=== PATIENT | male | born 1970 | race Hispanic/Latino ===

== ENCOUNTER 2017-01-06 13:50 | Emergency (ER) | payer MEDICARE ==
[2017-01-06 15:30] LABS: Hematocrit 35.4 % (35.5-45.6); Mean Corpuscular HGB Conc 34 % (32-34); Mean Corpuscular Hemoglobin 30 pg (28-32); Mean Corpuscular Volume 89 fl (84-94); Platelet Count 295 K/mm3 (140-440); Red Cell Distribution Width 13.4 % (13.2-15.2); White Blood Count 10.5 K/mm3 (4.5-11.0)
[2017-01-06 15:43] LABS: Alanine Aminotransferase 19 units/L (7-56); Albumin 4.5 g/dL (3.9-5); Albumin/Globulin Ratio 1.7 %; Alkaline Phosphatase 59 units/L (35-129); Anion Gap 21 mmol/L; Blood Urea Nitrogen 11 mg/dL (9-20); Calcium 9.7 mg/dL (8.4-10.2); Carbon Dioxide 26 mmol/L (22-30); Chloride 98.9 mmol/L (98-107); Glucose 154 mg/dL (75-100); Potassium 4.3 mmol/L (3.6-5.0); Sodium 142 mmol/L (137-145); Total Protein 7.2 g/dL (6.3-8.2)
[2017-01-06] MEDS ORDERED: NACL 0.9% 1000 ML 1,000 ML IV ONE (17:50)
[2017-01-06] MEDS ORDERED: LEVAQUIN PO ONE (17:50)
--- NOTE | 2017-01-06 19:06 | Emergency Department Report ---
ED N/V/D HPI - General Chief complaint: Nausea/Vomiting/Diarrhea Stated complaint: DIARRHEA Time Seen by Provider: 01/06/17 17:49 Source: EMS Mode of arrival: Stretcher Limitations: No Limitations - History of Present Illness Initial comments: 46-year-old male presenting to the emergency department complaining of one week of diarrhea. Patient states he lives in a [facility] and most of the members have had diarrhea. Patient states his symptoms started 1 day prior to ED arrival. Patient states diarrhea is watery, nonbloody, nonbilious. Patient denies other symptoms. Patient denies: Fever/chills, chest pain, abdominal pain , nausea vomiting, bloody stools. MD complaint: diarrhea -: Gradual, days(s) (7) Description of Vomiting: food contents, watery Description of Diarrhea: water Associated Abdominal Pain: No Radiation: none Severity: mild Pain Scale: 0 Improves with: none Worsens with: none Context: sick contacts Associated Symptoms: denies other symptoms. denies: chest pain, cough, diaphoresis, loss of appetite, malaise, nausea/vomiting, shortness of breath, syncope, weakness - Related Data Previous Rx's Medication Instructions Recorded Last Taken Type Ciprofloxacin HCl [Ciprofloxacin 500 mg PO Q12HR #20 tab 01/06/17 Unknown Rx TAB] Dicyclomine [Bentyl] 10 mg PO QID #20 bottle 01/06/17 Unknown Rx Ondansetron [Zofran Odt] 4 mg PO Q8HR PRN #20 tab.rapdis 01/06/17 Unknown Rx Allergies Allergy/AdvReac Type Severity Reaction Status Date / Time No Known Allergies Allergy Unverified 01/06/17 14:32 ED Review of Systems ROS: Stated complaint: DIARRHEA Other details as noted in HPI Constitutional: denies: chills, fever Eyes: denies: eye pain, eye discharge, vision change ENT: denies: ear pain, throat pain Respiratory: denies: cough, shortness of breath, wheezing Cardiovascular: denies: chest pain, palpitations Endocrine: no symptoms reported Gastrointestinal: denies: abdominal pain, nausea, diarrhea Genitourinary: denies: urgency, dysuria Musculoskeletal: denies: back pain, joint swelling, arthralgia Skin: denies: rash, lesions Neurological: denies: headache, weakness, paresthesias Psychiatric: denies: anxiety, depression Hematological/Lymphatic: denies: easy bleeding, easy bruising ED Past Medical Hx - Past Medical History Hx Hypertension: Yes Hx Diabetes: Yes Additional medical history: dementia, elevated cholesterol - Social History Smoking Status: Never Smoker Substance Use Type: None - Medications Home Medications: Home Medications Medication Instructions Recorded Confirmed Last Taken Type Ciprofloxacin HCl [Ciprofloxacin 500 mg PO Q12HR #20 tab 01/06/17 Unknown Rx TAB] Dicyclomine [Bentyl] 10 mg PO QID #20 bottle 01/06/17 Unknown Rx Ondansetron [Zofran Odt] 4 mg PO Q8HR PRN #20 tab.rapdis 01/06/17 Unknown Rx ED Physical Exam - General Limitations: No Limitations General appearance: alert, in no apparent distress - Head Head exam: Present: atraumatic, normocephalic - Eye Eye exam: Present: normal appearance - ENT ENT exam: Present: mucous membranes moist - Neck Neck exam: Present: normal inspection - Respiratory Respiratory exam: Present: normal lung sounds bilaterally. Absent: respiratory distress - Cardiovascular Cardiovascular Exam: Present: regular rate, normal rhythm. Absent: systolic murmur, diastolic murmur, rubs, gallop - GI/Abdominal GI/Abdominal exam: Present: soft, normal bowel sounds. Absent: distended, tenderness, guarding, rebound - Rectal Rectal exam: Present: deferred - Extremities Exam Extremities exam: Present: normal inspection - Back Exam Back exam: Present: normal inspection - Neurological Exam Neurological exam: Present: alert, oriented X3 - Psychiatric Psychiatric exam: Present: normal affect, normal mood - Skin Skin exam: Present: warm, dry, intact, normal color. Absent: rash ED Course Vital Signs 01/06/17 01/06/17 14:23 14:36 Temperature 98.4 F Pulse Rate 113 H Respiratory 18 18 Rate Blood Pressure 118/82 O2 Sat by Pulse 97 Oximetry - Reevaluation(s) Reevaluation #1: 01/06/17 19:11 Patient resting comfortably ED Medical Decision Making - Lab Data Result diagrams: 01/06/17 15:04 01/06/17 15:04 - Medical Decision Making 46 yo male presenting to the emergency department complaining of one week of diarrhea. Patient has no acute findings on physical exam nor labs. Patient states he just use the restroom is unable to provide us a urine sample at this time. I have low suspicion for UTI however if he does have a UTI, I will start him on Cipro which should cover. Patient is well-appearing tolerating by mouth and agrees he is stable discharge home. Critical care attestation.: If time is entered above; I have spent that time in minutes in the direct care of this critically ill patient, excluding procedure time. ED Disposition Clinical Impression: Diarrhea Disposition: DC-01 TO HOME OR SELFCARE Is pt being admited?: No Does the pt Need Aspirin: No Condition: Stable Instructions: Gastroenteritis (ED), Acute Diarrhea (ED) Prescriptions: Ciprofloxacin HCl [Ciprofloxacin TAB] 500 mg PO Q12HR #20 tab Dicyclomine [Bentyl] 10 mg PO QID #20 bottle Ondansetron [Zofran Odt] 4 mg PO Q8HR PRN #20 tab.rapdis PRN Reason: Nausea And Vomiting Referrals: PRIMARY CARE, [Primary Care Provider] - 3-5 Days Forms: Work/School Release Form(ED)
[2017-01-06] MEDS ORDERED: LEVAQUIN ONE (19:51)
[2017-01-07 00:46] VITALS: BP 115/72
== END 2017-01-06 22:50 | disposition home or self-care (01) ==
LOC: ED 13:50
DX: R19.7 Diarrhea, unspecified (principal); E11.9 Type 2 diabetes mellitus without complications; I10 Essential (primary) hypertension; E78.00 Pure hypercholesterolemia, unspecified
CPT/HCPCS: 36415; 80053; 83690; 85027; 96360; 96361

== ENCOUNTER 2017-06-13 08:07 | Emergency (ER) | payer MEDICARE ==
[2017-06-13 10:27] VITALS: BP 132/89
[2017-06-13] MEDS ORDERED: TYLENOL #3 PO ONE (11:10)
--- NOTE | 2017-06-13 11:53 | Cat Scan Report ---
CT HEAD WITHOUT CONTRAST: HISTORY: Headache. TECHNIQUE: Sequential 2.5mm CT images. COMPARISON: none. 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 The remaining brain parenchyma demonstrates normal attenuation. Normal osei-white interface. Cerebellum: Within normal limits. Brainstem: Within normal limits. Ventricles: Normal. Sella: Normal. Extra-axial spaces: Normal. Basal Cisterns: Normal. Intracranial Hemorrhage: None. Midline Shift: None. Calvarium: Normal. Sinuses: Normal. Mastoid Air Cells: Normal. Visualized Orbits: Normal. IMPRESSION: Surgical changes in the right anterior temporal region, as correlate with history. Otherwise unremarkable CT brain. No acute process is noted.
[2017-06-13] MEDS ORDERED: TORADOL IM ONE (13:17)
--- NOTE | 2017-06-13 13:18 | Emergency Department Report ---
HPI - General Chief Complaint: Fall Time Seen by Provider: 06/13/17 10:05 - HPI HPI: The patient's 46-year-old male presents for evaluation of headache. The patient states that he sustained a fall from standing approximately one hour prior to arrival. Complains of moderate severity aching headache, 8/10 in severity, constant since his fall, worse with movement. The patient denies fever , chest pain, dyspnea, cough, hemoptysis, syncope, back pain, abdominal pain, neck pain, neck stiffness, vision or hearing changes, smell or taste changes, paresthesias, facial drooping, slurred speech, seizure-like activity, urine or bowel incontinence or retention, or other focal neurological deficit. The patient denies blood thinner use as well. ED Past Medical Hx - Past Medical History Previous Medical History?: Yes Hx Hypertension: Yes Hx Diabetes: Yes Hx Dementia: Yes Additional medical history: dementia. elevated cholesterol. TBI - Surgical History Past Surgical History?: Yes Additional Surgical History: TBI - Social History Smoking Status: Current Every Day Smoker Substance Use Type: None - Medications Home Medications: Home Medications Medication Instructions Recorded Confirmed Last Taken Type Acetaminophen [Tylenol] 500 mg PO Q6HR #20 tablet 06/13/17 Unknown Rx Atorvastatin [Lipitor Tab] 80 mg PO DAILY 06/13/17 06/13/17 Unknown History DULoxetine [Cymbalta] 30 mg PO DAILY 06/13/17 06/13/17 Unknown History Gabapentin [Neurontin] 100 mg PO Q6H 06/13/17 06/13/17 Unknown History LORazepam [Ativan] 0.5 mg PO DAILY PRN 06/13/17 06/13/17 Unknown History Lisinopril [Zestril] 5 mg PO QDAY 06/13/17 06/13/17 Unknown History Nystatin Cream [Mycostatin Cream] 1 applic TP DAILY 06/13/17 06/13/17 Unknown History Protectives, O.u. [Sensi-Care] 1 each TP BID 06/13/17 06/13/17 Unknown History glipiZIDE [Glipizide] 5 mg PO BID 06/13/17 06/13/17 Unknown History levETIRAcetam [Keppra TAB] 500 mg PO BID 06/13/17 06/13/17 Unknown History metFORMIN [Glucophage] 500 mg PO BID 06/13/17 06/13/17 Unknown History risperiDONE [Risperdal] 2 mg PO Q12H 06/13/17 06/13/17 Unknown History ED Review of Systems ROS: Stated complaint: FALL/BACK PAIN Other details as noted in HPI Constitutional: denies: fever ENT: denies: throat or neck pain Respiratory: denies: cough, shortness of breath Cardiovascular: denies: chest pain Endocrine: denies unexplained weight loss or gain Gastrointestinal: denies: abdominal pain, nausea Genitourinary: denies: dysuria Musculoskeletal: denies: leg swelling Skin: denies: rash Neurological: reports headache Hematological/Lymphatic: denies: easy bleeding or easy bruising Psych: denies sadness or hopelessness Physical Exam - Physical Exam Vital Signs: Vital Signs 06/13/17 06/13/17 06/13/17 08:10 08:14 08:21 Temperature 98.2 F Pulse Rate 76 82 Respiratory 18 9 L Rate Blood Pressure 115/86 115/86 O2 Sat by Pulse 98 98 98 Oximetry 06/13/17 06/13/17 06/13/17 08:41 09:00 09:21 Temperature Pulse Rate 74 77 75 Respiratory 10 L 12 11 L Rate Blood Pressure 126/85 125/92 125/92 O2 Sat by Pulse 98 98 99 Oximetry 06/13/17 06/13/17 06/13/17 09:40 10:00 10:21 Temperature Pulse Rate 73 76 87 Respiratory 9 L 8 L 12 Rate Blood Pressure 132/89 122/88 132/89 O2 Sat by Pulse 99 99 99 Oximetry 06/13/17 06/13/17 10:25 12:17 Temperature Pulse Rate Respiratory 18 18 Rate Blood Pressure O2 Sat by Pulse 98 Oximetry Physical Exam: General: well-nourished, well-developed, no acute distress Head: Normocephalic, abrasion present to the forehead Eyes: normal sclera ENT: Mucous membranes are pink and moist Neck: trachea midline, neck supple, No neck stiffness, no cervical adenopathy Respiratory: Breath sounds equal bilaterally, no wheezing, rales, or rhonchi Cardio: S1 and S2 present, no murmurs, rubs, gallops, capillary refill is brisk Abdomen: Normoactive bowel sounds, soft abdomen, no rigidity, no guarding or rebound tenderness Musc: No pitting edema Skin: No rash Neuro: Alert and oriented 3, normal cognition, normal speech, no facial drooping, no pronator drift, no obvious gross sensation or motor deficit in the arms or legs, reflexes 2+ symmetric on DTR testing Psych: Normal affect ED Course Vital Signs 06/13/17 06/13/17 06/13/17 08:10 08:14 08:21 Temperature 98.2 F Pulse Rate 76 82 Respiratory 18 9 L Rate Blood Pressure 115/86 115/86 O2 Sat by Pulse 98 98 98 Oximetry 06/13/17 06/13/17 06/13/17 08:41 09:00 09:21 Temperature Pulse Rate 74 77 75 Respiratory 10 L 12 11 L Rate Blood Pressure 126/85 125/92 125/92 O2 Sat by Pulse 98 98 99 Oximetry 06/13/17 06/13/17 06/13/17 09:40 10:00 10:21 Temperature Pulse Rate 73 76 87 Respiratory 9 L 8 L 12 Rate Blood Pressure 132/89 122/88 132/89 O2 Sat by Pulse 99 99 99 Oximetry 06/13/17 06/13/17 10:25 12:17 Temperature Pulse Rate Respiratory 18 18 Rate Blood Pressure O2 Sat by Pulse 98 Oximetry ED Medical Decision Making - Medical Decision Making The patient was seen and examined by myself. The patient is placed on a cardiac rn and continuous pulse ox. On initial evaluation, the patient was found to be in no distress. Evaluation orders were placed. The patient is given Tylenol for his headache. EKG is unremarkable. CT scan the head is negative for acute intracranial disease process. The patient was reevaluated and reported that their symptoms were markedly improved. The patient is stable for discharge with outpatient follow-up. The patient is given follow-up and return instructions. The patient expressed understanding and agreed with the plan. The patient is discharged in stable condition. Critical care attestation.: If time is entered above; I have spent that time in minutes in the direct care of this critically ill patient, excluding procedure time. ED Disposition Clinical Impression: Acute post-traumatic headache, not intractable, Fall from other slipping, tripping, or stumbling Disposition: DC-01 TO HOME OR SELFCARE Is pt being admited?: No Does the pt Need Aspirin: No Condition: Stable Instructions: Minor Head Injury (ED), Acute Headache (ED), Fall Prevention (ED) Prescriptions: Acetaminophen [Tylenol] 500 mg PO Q6HR #20 tablet Referrals: PRIMARY CARE, [Primary Care Provider] - 3-5 Days [facility] [Outside] - 3-5 Days Time of Disposition: 13:07
== END 2017-06-13 18:03 | disposition home or self-care (01) ==
LOC: ED 08:07
DX: G44.319 Acute post-traumatic headache, not intractable (principal); I10 Essential (primary) hypertension; F17.200 Nicotine dependence, unspecified, uncomplicated
CPT/HCPCS: 70450; 93005; 93010; 96372; 99285

== ENCOUNTER 2018-09-25 13:22 | Emergency (ER) | payer MEDICARE ==
[2018-09-25 13:35] VITALS: BP 129/91
--- NOTE | 2018-09-25 15:16 | Cat Scan Report ---
PROCEDURE: CT HEAD/BRAIN WO CON TECHNIQUE: Computerized tomography of the head was performed without contrast material. Imaging was obtained in axial increments. CT DOSE LENGTH PRODUCT: 1049.85 mGycm HISTORY: head injury COMPARISONS: None available. FINDINGS: Evidence for craniotomy over the right frontotemporal region is noted. There is underlying encephalom alacia in this region. Higher density material in the anterior aspect of the right middle cranial fos sa consistent with postsurgical material. The ventricular system is normal in size and configuration. There is no evidence for parenchymal volu me loss. There is no evidence for mass lesion, mass effect, midline shift, acute intracranial hemorrhage, or a cute ischemia/ infarction. No evidence for acute skull fracture is seen. No abnormality in the overlying scalp soft tissues is s een. Visualized paranasal sinuses are clear. IMPRESSION: Postsurgical findings in the right temporal region. No acute intracranial process noted. This document is electronically signed by Mayelin Salomon MD., September 25 2018 03:14:35 PM ET
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
== END 2018-09-25 16:34 | disposition home or self-care (01) ==
LOC: ED 13:22
DX: S09.90XA Unspecified injury of head, initial encounter (principal); I10 Essential (primary) hypertension; E11.9 Type 2 diabetes mellitus without complications; E78.00 Pure hypercholesterolemia, unspecified; Z88.1 Allergy status to other antibiotic agents; Y04.2XXA Assault by strike against or bumped into by another person, initial encounter; Y93.89 Activity, other specified; Y92.128 Other place in nursing home as the place of occurrence of the external cause; Y99.8 Other external cause status
CPT/HCPCS: 70450; 82962; 99284

== ENCOUNTER 2021-06-14 08:28 | Emergency (ER) | payer MEDICARE ==
[2021-06-14] MEDS ORDERED: KETOROLAC 30 MG/1 ML INJ IV ONE (08:50)
[2021-06-14] MEDS ORDERED: SODIUM CHLORIDE 0.9% 1000 ML 1,000 ML IV ONE (08:50)
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
[2021-06-14 09:54] LABS: Hematocrit 38.5 % (35.5-45.6); Hemoglobin 12.8 gm/dl (11.8-15.2); Mean Corpuscular HGB Conc 33 % (32-34); Mean Corpuscular Volume 90 fl (84-94); Platelet Count 296 K/mm3 (140-440); Red Blood Count 4.29 M/mm3 (3.65-5.03); Red Cell Distribution Width 13.4 % (13.2-15.2)
[2021-06-14 10:23] LABS: Blood Urea Nitrogen 15 mg/dL (9-20); Calcium 9.3 mg/dL (8.4-10.2); Hemolysis Index 5
[2021-06-14 10:24] LABS: BUN/Creatinine Ratio 25
[2021-06-14 12:07] VITALS: BP 116/83
== END 2021-06-14 12:07 | disposition home or self-care (01) ==
LOC: ED 08:28
DX: I31.3 Pericardial effusion (noninflammatory) (principal); S22.42XA Multiple fractures of ribs, left side, initial encounter for closed fracture; S27.9XXA Injury of unspecified intrathoracic organ, initial encounter; Z88.1 Allergy status to other antibiotic agents; E11.8 Type 2 diabetes mellitus with unspecified complications; I10 Essential (primary) hypertension; Z79.899 Other long term (current) drug therapy; Y04.8XXA Assault by other bodily force, initial encounter; Y93.89 Activity, other specified; Y92.89 Other specified places as the place of occurrence of the external cause; Y99.8 Other external cause status
CPT/HCPCS: 36415; 71250; 80048; 85027; 96361; 96374; 99284; J1885; J7030; Q0162

== ENCOUNTER 2021-09-04 14:45 | Emergency (ER) | payer MEDICARE ==
[2021-09-04 15:21] LABS: Bilirubin,Urine NEG (Negative); Blood,Urine NEG (Negative); Color,Urine Straw (Yellow); Protein,Urine <15 mg/dL mg/dL (Negative); RBC,Urine < 1.0 /HPF (0.0-6.0); Urobilinogen,Urine < 2.0 mg/dL (<2.0)
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
[2021-09-04 17:05] LABS: Basophils % (Auto) 0.5 % (0.0-1.8); Eosinophils # (Auto) 0.1 K/mm3 (0.0-0.4); Eosinophils % (Auto) 1.2 % (0.0-4.3); Hematocrit 35.3 % (35.5-45.6); Hemoglobin 12.3 gm/dl (11.8-15.2); Lymphocytes # (Auto) 4.4 K/mm3 (1.2-5.4); Lymphocytes % (Auto) 44.8 % (13.4-35.0); Mean Corpuscular HGB Conc 35 % (32-34); Mean Corpuscular Volume 90 fl (84-94); Monocytes # (Auto) 0.6 K/mm3 (0.0-0.8); Monocytes % (Auto) 6.1 % (0.0-7.3); Platelet Count 312 K/mm3 (140-440); Red Blood Count 3.92 M/mm3 (3.65-5.03); Red Cell Distribution Width 13.6 % (13.2-15.2)
[2021-09-04 17:19] LABS: BUN/Creatinine Ratio 13; Blood Urea Nitrogen 10 mg/dL (9-20); Calcium 9.9 mg/dL (8.4-10.2); Hemolysis Index 6
[2021-09-04] MEDS ORDERED: ZIPRASIDONE MESYLATE 20 MG VIAL IM ONE (19:02)
[2021-09-04 20:24] VITALS: BP 135/81
--- NOTE | 2021-09-05 08:05 | Emergency Department Report ---
Blank Doc - Documentation Documentation: Patient is calm this morning. He is ambulatory and without complaints. We are awaiting psychiatric disposition.
--- NOTE | 2021-09-05 10:01 | Consultation ---
History of Present Illness - Reason for Consult Consult date: 09/05/21 Reason for consult: psychosis - History of Present Psychiatric Illness The patient was seen today. He is confused, but calm, and cooperative. He has poor insight and memory. The patient says he was brought in for chest pain. He says "I had a heart attack twice so I know what they feel like." He denies major history of psychiatry but says "I suffered from depression when I lost my parents years ago." He denies any drug use, alcohol or nicotine use. He says "I used to smoke cigarets but I stopped." He says he has tow brothers in [place]. He denies SI/HI or hallucinations of any kind. PAST PSYCHIATRIC HISTORY Diagnoses: Depression Suicide attempts or Self-harm behavior: Denies Prior psychiatric hospitalizations: Denies Substance Abuse history: Denies Previous psychiatric medications tried: Denies Outpatient treatment: Denies PAST MEDICAL HISTORY: none reported Family Psychiatric History: None reported or documented SOCIAL HISTORY Marital Status: single Living Arrangements: alf home Employment Status: disabled Access to guns/weapons: none reported Education: History of Abuse: none reported Legal History: none reported REVIEW OF SYSTEMS Constitutional: Negative for weight loss ENT: Negative for stridor Respiratory: Negative for cough or hemoptysis All other systems reviewed and are negative MENTAL STATUS EXAMINATION General Appearance and Behavior: Age appropriate, good hygiene, wearing appropriate clothes, calm and cooperative, pleasant Cooperation: Participating/engaged Psychomotor Behavior: unremarkable and within normal limits Mood: good Affect and affective range: Euthymic Thought Process: confused Thought Content: None Speech: Normal volume, Regular rate and rhythm Suicidal Ideation: Denies Homicidal Ideation: Denies Hallucinations: Denies Delusions: None elicited Impulse Control: Impaired Insight and Judgment: Limited insight and judgment Memory: Normal Attention: Divided attention impaired Orientation: Alert, oriented Assessment and Plan (3) Dementia with Behavioral Disturbance Current Visit: Yes Status: Acute Treatment Plan d/c 1013 consult case management Risks, benefits and alternatives of medications discussed with the patient, questions answered and consent obtained from patient. PSYCHOTHERAPY: Supportive psychotherapy provided MEDICAL: Per primary team DELIRIUM PRECAUTIONS: Please re-orient patient frequently, keep lights on during the day, and minimize benzodiazepines and opiates as these medications could worsen patient's confusion. MARKET DEVELOPMENT EXECUTIVE: DISPOSITION: Do not Recommend acute inpatient psychiatric hospitalization at this time FOLLOW-UP: Will sign off Thank you for the consult. Please contact with any questions and/or concerns. Case staffed with Dr. Street Medications and Allergies Allergies Allergy/AdvReac Type Severity Reaction Status Date / Time vancomycin Allergy Unknown Verified 06/14/21 08:32 Home Medications Medication Instructions Recorded Confirmed Last Taken Type Acetaminophen [Tylenol] 500 mg PO Q6HR #20 tablet 06/13/17 Unknown Rx Atorvastatin [Lipitor Tab] 80 mg PO DAILY 06/13/17 06/13/17 Unknown History DULoxetine [Cymbalta] 30 mg PO DAILY 06/13/17 06/13/17 Unknown History Gabapentin [Neurontin] 100 mg PO Q6H 06/13/17 06/13/17 Unknown History LORazepam [Ativan] 0.5 mg PO DAILY PRN 06/13/17 06/13/17 Unknown History Nystatin Cream [Mycostatin Cream] 1 applic TP DAILY 06/13/17 06/13/17 Unknown History Protectives, O.u. [Sensi-Care] 1 each TP BID 06/13/17 06/13/17 Unknown History glipiZIDE [Glipizide] 5 mg PO BID 06/13/17 06/13/17 Unknown History levETIRAcetam [Keppra TAB] 500 mg PO BID 06/13/17 06/13/17 Unknown History lisinopriL [Zestril] 5 mg PO QDAY 06/13/17 06/13/17 Unknown History metFORMIN [Glucophage] 500 mg PO BID 06/13/17 06/13/17 Unknown History risperiDONE [Risperdal] 2 mg PO Q12H 06/13/17 06/13/17 Unknown History Ibuprofen [Motrin] 800 mg PO Q8HR PRN #30 tablet 09/25/18 Unknown Rx HYDROcodone/APAP 5-325 [[place] 1 each PO Q6HR PRN #12 tablet 06/14/21 Unknown Rx 5/325] Mental Status Exam - Vital signs Last Vital Signs Temp 98.1 F 09/04/21 20:23 Pulse 90 09/04/21 20:23 Resp 18 09/05/21 09:06 BP 135/81 09/04/21 20:23 Pulse Ox 98 09/05/21 09:06 Results Result Diagrams: 09/04/21 15:41 09/04/21 15:41 Abnormal lab results 09/04/21 09/04/21 09/04/21 Range/Units 15:41 15:41 15:41 Hct 35.3 L (35.5-45.6) % MCHC 35 H (32-34) % Lymph % (Auto) 44.8 H (13.4-35.0) % Sodium 132 L (137-145) mmol/L Chloride 94.8 L (98-107) mmol/L Salicylates < 0.3 L (2.8-20.0) mg/dL Acetaminophen (10.0-30.0) ug/mL 09/04/21 Range/Units 15:41 Hct (35.5-45.6) % MCHC (32-34) % Lymph % (Auto) (13.4-35.0) % Sodium (137-145) mmol/L Chloride (98-107) mmol/L Salicylates (2.8-20.0) mg/dL Acetaminophen 5.0 L (10.0-30.0) ug/mL All other labs normal.
[2021-09-05 13:49] LABS: Bacteria,Urine 1+ /HPF (Negative); Bilirubin,Urine NEG (Negative); Blood,Urine NEG (Negative); Color,Urine Yellow (Yellow); Granular Casts,Urine 4 /LPF; Hyaline Casts,Urine 42 /LPF; Mucus,Urine 2+ /HPF; Renal Epithelial Cells,Urine 14 /LPF
[2021-09-05 14:21] LABS: Amphetamine Screen,Urine PRESUMPTIVE NEGATIVE; Benzodiazepines Screen,Urine PRESUMPTIVE NEGATIVE; Cannabinoid Screen,Urine PRESUMPTIVE NEGATIVE; Cocaine Screen,Urine PRESUMPTIVE NEGATIVE; Methadone Screen,Urine PRESUMPTIVE NEGATIVE; Opiate Screen,Urine PRESUMPTIVE NEGATIVE
--- NOTE | 2021-09-05 17:51 | Event Note ---
Date: 09/05/21 Spoke with the patient's outpatient IT BUSINESS ANALYST, Shana per [facility] of [facility], per ER nurse. She did not expect the call. Informed her that the patient was cleared from a psych standpoint, because of no reported behavior issues, or psych related behaviors. She says the patient has always been calm, cooperative and polite with her, but states it's something that always triggers him at the place he is living, that causes him to become agitated. Disposition stands, the patient is clear from psych standpoint. He has a hx of TBI and repe ated behavior issues at facility, according to facility, per IT BUSINESS ANALYST. If current residence refusing to except the patient, case management is consulted to assist with placement.
--- NOTE | 2021-09-06 07:20 | Emergency Department Report ---
Blank Doc - Documentation Documentation: Patient was cleared by psychiatric services and was discharged. He is not darlyn cidal at this time. He is not homicidal. There is no evidence of acute delusion. He is not responding to extraneous stimuli.
== END 2021-09-06 07:54 | disposition home or self-care (01) ==
LOC: EDUNIT# → ED 14:45
DX: R45.6 Violent behavior (principal); Z88.1 Allergy status to other antibiotic agents
CPT/HCPCS: 36415; 80048; 81001; 85025; 99284; J3486; 80307; 80320; 87086; G0480; U0003